=== PATIENT | male | born 1960 | race Caucasian/White ===

== ENCOUNTER 2017-12-21 00:47 | Emergency (ER) | payer MEDICARE, MEDICAID ==
[~2017-12-21] VITALS: Ht 167.6 cm; Wt 85.0 kg
[2017-12-21] MEDS ORDERED: dexamethasone sod phosphate 10mg/ml inj IM STA (01:23)
[2017-12-21 02:02] VITALS: BP 133/71
== END 2017-12-21 02:09 | disposition home or self-care (01) ==
LOC: ER 00:48
DX: K12.2 Cellulitis and abscess of mouth (principal)
CPT/HCPCS: 96372; 99283; J1100

== ENCOUNTER 2019-02-18 09:10 | Day surgery (SDC) | payer MEDICARE, MEDICAID ==
[2019-02-13 09:10] LABS: BASOPHILS # (AUTO) 0.1 X10'3 (0-0.2); BASOPHILS % (AUTO) 0.7 % (0-1); EOSINOPHILS # (AUTO) 0.6 X10'3 (0-0.9); EOSINOPHILS % (AUTO) 6.6 % (0-6); HEMOGLOBIN 13.4 g/dl (14.0-17.9); LYMPHOCYTES # (AUTO) 3.3 X10'3 (1.1-4.8); LYMPHOCYTES % (AUTO) 36.2 % (21-51); MEAN CORPUSCULAR HEMOGLOBIN 30.3 PG (27.0-31.0); MEAN CORPUSCULAR HGB CONC 34.3 g/dL (33.0-36.5); MEAN CORPUSCULAR VOLUME 88.4 FL (78-98); MEAN PLATELET VOLUME 7.8 FL (7.4-10.4); MONOCYTES # (AUTO) 0.8 X10'3 (0-0.9); MONOCYTES % (AUTO) 8.7 % (2-12); NEUTROPHILS # (AUTO) 4.4 X10'3 (1.8-7.7); NEUTROPHILS % (AUTO) 47.8 % (42-75); PLATELET COUNT 313 X10'3 (140-440); RED BLOOD COUNT 4.41 X10'6 (4.70-6.10); RED CELL DISTRIBUTION WIDTH 15.1 % (11.5-14.5); WHITE BLOOD COUNT 9.2 X10'3 (4.5-11.0)
[2019-02-13 09:19] LABS: ALBUMIN 3.9 G/DL (3.4-5.0); ANION GAP 7 (8-16); BLOOD UREA NITROGEN 13 MG/DL (7-18); CALCIUM 9.4 MG/DL (8.5-10.1); CHLORIDE 103 MMOL/L (99-107); GLUCOSE 132 MG/DL (70-104); POTASSIUM 4.2 MMOL/L (3.5-5.1); SODIUM 141 MMOL/L (135-145); TOTAL CARBON DIOXIDE 31.1 MMOL/L (24-32); eGFR 77 ML/MIN
[2019-02-13 09:21] LABS: PARTIAL THROMBOPLASTIN TIME 37 SECONDS (22-32)
[2019-02-18] VITALS (9 sets, daily range): BP systolic 110–146; BP diastolic 61–87
[~2019-02-18] VITALS: Ht 167.6 cm; Wt 91.4 kg
[2019-02-18] MEDS ORDERED: normal saline 1,000 ML IV SCH (09:30)
[2019-02-18] MEDS ORDERED: diphenhydrAMINE 25mg capsule PO PRN (09:30)
[2019-02-18] MEDS ORDERED: LORazepam 0.5 MG tablet PO PRN (09:30)
[2019-02-18] MEDS ORDERED: ASPI-611 PO (11:22)
[2019-02-18] MEDS ORDERED: ATOR20TA66 PO (11:22)
[2019-02-18] MEDS ORDERED: LISI-604 PO (11:22)
[2019-02-18] MEDS ORDERED: BUPR1FIL7 SL (11:22)
[2019-02-18] MEDS ORDERED: CARV-50 PO (11:22)
[2019-02-18] MEDS ORDERED: LIDOcaine 1% (10mg/ml)w/preservative injection 20ml MDV ONE (11:30)
[2019-02-18] MEDS ORDERED: iohexol 350MG/ML 100ml bottle IV ONE (11:31)
[2019-02-18] MEDS ORDERED: midazolam 2 mg/2 ml injection ONE ×2 (11:54→12:08)
[2019-02-18] MEDS ORDERED: fentaNYL/PF 50MCG/1 ML 2ML syringe ONE (11:54)
[2019-02-18] MEDS ORDERED: ondansetron/PF 4mg/2ml inj IV PRN (13:00)
[2019-02-18] MEDS ORDERED: normal saline 1000ml 1,000 ML IV SCH (13:00)
[2019-02-18] MEDS ORDERED: HYDROcodone/acetaminophen 5mg/325mg tablet PO PRN (13:00)
[2019-02-18] MEDS ORDERED: OXAZEpam 15mg capsule PO PRN (13:05)
[2019-02-18] MEDS ORDERED: proCHLORperazine 10 MG/2 ml inj IV PRN (13:05)
[2019-02-18] MEDS ORDERED: HYDROcodone/acetaminophen 10/325mg tab PO PRN (13:05)
[2019-02-26] MEDS ORDERED: ONDA4TAB6 PO (07:32)
[2019-02-26] MEDS ORDERED: ALBU8.5H8 IH (12:21)
[2019-02-26] MEDS ORDERED: NITR0.4T48 SL (12:21)
[2019-02-26] MEDS ORDERED: AMLO5TAB16 PO (12:21)
[2019-03-02] MEDS ORDERED: AMOX-422 PO (14:17)
== END 2019-02-18 15:10 | disposition home or self-care (01) ==
LOC: SSTAY O 09:10
PROVIDERS: ATTEND Internal Medicine Interventional Cardiology
DX: R94.39 Abnormal result of other cardiovascular function study (principal); I25.119 Atherosclerotic heart disease of native coronary artery with unspecified angina pectoris; I25.82 Chronic total occlusion of coronary artery; G89.4 Chronic pain syndrome; I10 Essential (primary) hypertension; E78.5 Hyperlipidemia, unspecified; Z79.01 Long term (current) use of anticoagulants; Z87.891 Personal history of nicotine dependence; Z79.82 Long term (current) use of aspirin; Z79.899 Other long term (current) drug therapy
CPT/HCPCS: 36415; 80048; 85025; 85610; 85730; 93005; 93458; 99152; C1769; J1644; J2001; J2250; J3010; J7030; Q0163; Q9967; A4620; A6258

== ENCOUNTER 2023-12-09 09:29 | Emergency (ER) | payer MEDICARE, MEDICAID ==
[~2023-12-09] VITALS: Ht 170.2 cm; Wt 85.0 kg
[~2023-12-09 09:29] MED LIST: ALBU8.5H17 IH; AMLO5TAB16 PO; ASPI-611 PO; ATOR20TA66 PO; BUPR1FIL7 SL; CARV-50 PO; LISI5TAB22 PO; NITR0.4T48 SL
[2023-12-09 10:04] LABS: BASOPHILS % (AUTO) 0.5 % (0-1); EOSINOPHILS # (AUTO) 0.5 X10'3 (0-0.9); EOSINOPHILS % (AUTO) 5.6 % (0-6); HEMATOCRIT 35.7 % (42.0-52.0); HEMOGLOBIN 11.8 g/dl (14.0-17.9); LYMPHOCYTES # (AUTO) 3.2 X10'3 (1.1-4.8); MEAN CORPUSCULAR HEMOGLOBIN 28.9 PG (27.0-31.0); MEAN CORPUSCULAR HGB CONC 33.1 g/dL (33.0-36.5); MEAN CORPUSCULAR VOLUME 87.5 FL (78-98); MEAN PLATELET VOLUME 7.6 FL (7.4-10.4); MONOCYTES # (AUTO) 0.8 X10'3 (0-0.9); MONOCYTES % (AUTO) 8.5 % (2-12); NEUTROPHILS # (AUTO) 4.6 X10'3 (1.8-7.7); NEUTROPHILS % (AUTO) 50.4 % (42-75); PLATELET COUNT 309 X10'3 (140-440); RED BLOOD COUNT 4.08 X10'6 (4.70-6.10); RED CELL DISTRIBUTION WIDTH 16.7 % (11.5-14.5); WHITE BLOOD COUNT 9.2 X10'3 (4.5-11.0)
[2023-12-09 10:15] LABS: ALANINE AMINOTRANSFERASE 47 U/L (12-78); ALBUMIN 3.5 G/DL (3.4-5.0); ALBUMIN/GLOBULIN RATIO 0.8 (1.1-1.5); ALKALINE PHOSPHATASE 99 IU/L (46-116); ANION GAP 7 (8-16); ASPARTATE AMINO TRANSFERASE 34 U/L (10-37); BILIRUBIN,TOTAL 0.2 MG/DL (0.1-1.0); BLOOD UREA NITROGEN 17 MG/DL (7-18); BUN/CREATININE RATIO 19.5 (10.0-20.0); CALCIUM 9.2 MG/DL (8.5-10.1); CHLORIDE 100 MMOL/L (99-107); CREATININE 0.87 MG/DL (0.60-1.10); GLUCOSE 134 MG/DL (70-104); POTASSIUM 4.6 MMOL/L (3.5-5.1); SODIUM 135 MMOL/L (135-145); TOTAL CARBON DIOXIDE 27.7 MMOL/L (24-32); TOTAL PROTEIN 7.9 G/DL (6.4-8.2); eCRCL 82 ML/MIN; eGFR 89 ML/MIN
[2023-12-09 10:22] LABS: PRO BRAIN NATRIURETIC PEPTIDE 49 PG/ML (0-125)
[2023-12-09] MEDS: ketorolac trometh 15mg/ml vial 15 MG/ML ML IV ONE (11:28)
[2023-12-09] MEDS: ringers solution, lactated 1000ml IV soln IV ONE (11:28)
[2023-12-09 14:36] VITALS: BP 156/82; PULSE 62; RESP 16; TEMP 98.4; O2SAT 98
== END 2023-12-09 14:39 | disposition home or self-care (01) ==
LOC: ER 09:29
DX: R55 Syncope and collapse (principal); F12.90 Cannabis use, unspecified, uncomplicated; I11.0 Hypertensive heart disease with heart failure; I50.9 Heart failure, unspecified; E11.9 Type 2 diabetes mellitus without complications; Z95.0 Presence of cardiac pacemaker; Z79.82 Long term (current) use of aspirin; Z79.899 Other long term (current) drug therapy
CPT/HCPCS: 36415; 70450; 71045; 72125; 73030; 73060; 73090; 80053; 83880; 84484; 85025; 93005; 96361; 96374; 99285; J1885; J7120